=== PATIENT | male | born 1970 | race Caucasian/White ===

== ENCOUNTER 2017-11-25 03:36 | Emergency (ER) | payer SELFPAY ==
[~2017-11-25] VITALS: Ht 177.8 cm; Wt 90.0 kg
[2017-11-25 03:38] VITALS: BP 158/93; PULSE 62; RESP 18; TEMP 97.5; O2SAT 100
[2017-11-25] MEDS ORDERED: BUPIVACAINE HCL PF 0.5% 10 ML VIAL INFIL ONE (04:00)
--- NOTE | 2017-11-25 04:12 | PD ---
HPI Chief Complaint: Oral / Dental Pain or Problem Time Seen by Provider: 03:50 Travel History International Travel<30 days: No Contact w/Intl Traveler<30days: No Traveled to known affect area: No History of Present Illness HPI This patient speaks Romanian, he requests that his interpret for him. 47- year-old male presents for evaluation of dental pain. Symptoms started 2 hours prior to arrival. He describes it as a throbbing pain, localized to the left mandibular first molar and then radiating into the left side of his face and ear. Pain is constant. He tried using [id number] Tylenol ibuprofen with minimal relief. Pain is aggravated by palpation of the left mandibular first molar with no alleviating factors. He denies any dental injury. He denies any cough, congestion, sore throat, fever, headache, neck pain. He has no other complaints. PFSH Past Medical History Cardiac Catheterization: Yes (2009 no stents) Cardiovascular Problems: Yes Chest Pain: Yes (2009) Diminished Hearing: No Hypertension: Yes Immunizations Current: Yes Tetanus Vaccination: Unknown Influenza Vaccination: No Social History Alcohol Use: No Tobacco Use: No Substance Use: No Allergies-Medications (Allergen,Severity, Reaction): Coded Allergies: No Known Allergies (Unverified Adverse Reaction, Unknown, 11/25/17) Reported Meds & Prescriptions Reported Meds & Active Scripts Active Active Prescriptions or Reported Medications Unobtainable Review of Systems Except as stated in HPI: all other systems reviewed are Neg Physical Exam Narrative GENERAL: Well-developed well-nourished male in no acute distress SKIN: Warm and dry. HEAD: Atraumatic. Normocephalic. EYES: Pupils equal and round. No scleral icterus. No injection or drainage. ENT: No nasal bleeding or discharge. Mucous membranes pink and moist. There is some early dental decay noted to the left mandibular first molar which is tender to percussion. There is no tenderness to palpation of the remaining teeth. Multiple metallic fillings are noted in several of the patient's teeth. There is no gingival edema, no sublingual edema, no facial edema, no trismus. Tympanic membranes appear normal without erythema or fluid level. There is no tenderness to palpation of the face, no tenderness to palpation of the temples. No mastoid tenderness. NECK: Trachea midline. No JVD. CARDIOVASCULAR: Regular rate and rhythm. No murmur appreciated. RESPIRATORY: No accessory muscle use. Clear to auscultation. Breath sounds equal bilaterally. GASTROINTESTINAL: Abdomen soft, non-tender, nondistended. Hepatic and splenic margins not palpable. MUSCULOSKELETAL: No obvious deformities. No clubbing. No cyanosis. No edema. NEUROLOGICAL: Awake and alert. No obvious cranial nerve deficits. Motor grossly within normal limits. Normal speech. Data Data Last Documented VS Vital Signs Date Time Temp Pulse Resp B/P (MAP) Pulse Ox O2 Delivery O2 Flow Rate FiO2 11/25/17 03:38 97.5 62 18 158/93 (114) 100 Orders Orders Bupivacaine Pf 0.5% Inj (Marcaine Pf 0.5 (11/25/17 04:00) Penicillin V Potassium (Veetids) (11/25/17 04:30) [facility] Medical Decision Making Medical Screen Exam Complete: Yes Emergency Medical Condition: Yes Medical Record Reviewed: Yes Differential Diagnosis Dental caries, pulpitis, pericoronitis, periodontal abscess, otitis media, foreign body in ear, temporal arteritis, trigeminal neuralgia, early shingles Narrative Course The patient's pain seems to be emanating from his left mandibular first molar which is tender to percussion. There is no tenderness to palpation to the remaining teeth and there is no tenderness to palpation of the face. No focal neurologic deficits. No tenderness to palpation to the gnosticism. No foreign bodies in the ears. No evidence of otitis media. No rash. Plan is for dental nerve block for which he consents. 0420: Patient was reexamined, his pain is resolved. He is stable for discharge , outpatient follow-up with a dentist. Procedures Procedure Narrative Inferior alveolar nerve block: Left inferior alveolar nerve block performed with 4 cc of 0.5% Marcaine. Patient tolerated procedure well. Diagnosis Primary Impression: Dental caries Referrals: Dentist Additional Instructions: Medication as prescribed. Do not drive or drink alcohol and taking hydrocodone acetaminophen. Continue taking ibuprofen as needed for pain per dosing instructions on the bottle. Follow-up with a dentist for definitive treatment. Return for any emergent medical conditions. Med/Other Pt SpecificInfo: Prescription(s) given Scripts Wfbwiwsu-Wjpoelmhbjxzljv-Lcnwzuxzj Liq (Magic Mouthwash Adult Liq) 120 Ml Susp 10 ML SWISH-SPIT ACHS for Mouth sores, #120 ML 0 Refills Each 5mL contains: Nystatin 200,000units, Diphenhydramine 4.25mg, Viscous Lidocaine 10mg, Cummings syrup 0.8 mL Prov: Maryellen Castro MD 11/25/17 Hydrocodone-Acetaminophen (Hydrocodone-Acetaminophen) 5-325 mg Tab 1 TAB PO Q6H Y for PAIN, #12 TAB 0 Refills Prov: Maryellen Castro MD 11/25/17 Penicillin V Potassium (Penicillin V Potassium) 500 Mg Tab 500 MG PO Q8H for Infection for 10 Days, #30 TAB 0 Refills Prov: Maryellen Castro MD 11/25/17 Disposition: 01 DISCHARGE HOME Condition: Stable Leonardo Torrez Nov 25, 2017 04:12
[2017-11-25] MEDS ORDERED: PENI500T PO (04:18)
[2017-11-25] MEDS ORDERED: HYDR-3516 PO (04:19)
[2017-11-25] MEDS ORDERED: MAGICADU2 SWISH-SPIT (04:19)
[2017-11-25] MEDS ORDERED: PENICILLIN V POTASSIUM 500 MG TAB PO ONE (04:30)
== END 2017-11-25 05:00 | disposition home or self-care (01) ==
LOC: NEPD 03:36
DX: K02.9 Dental caries, unspecified (principal); I10 Essential (primary) hypertension
CPT/HCPCS: 64400